=== PATIENT | male | born 1985 | race Caucasian/White ===

== ENCOUNTER 2017-02-19 10:01 | Emergency (ER) | payer MEDICAID ==
[~2017-02-19] VITALS: Ht 170.2 cm; Wt 111.3 kg
[2017-02-19 10:46] VITALS: Ht 170.2 cm; Wt 111.3 kg
[2017-02-19 13:43] VITALS: BP 143/103
== END 2017-02-19 13:20 | disposition home or self-care (01) ==
LOC: ED 10:01
DX: M67.432 Ganglion, left wrist (principal); G89.29 Other chronic pain; M54.9 Dorsalgia, unspecified; Z88.0 Allergy status to penicillin; Z88.1 Allergy status to other antibiotic agents

== ENCOUNTER 2017-05-14 10:24 | Emergency (ER) | payer OTHER ==
[~2017-05-14] VITALS: Ht 172.7 cm; Wt 114.3 kg
[2017-05-14 10:41] VITALS: Ht 172.7 cm; Wt 114.3 kg
[2017-05-14 11:38] VITALS: BP 135/76
== END 2017-05-14 12:48 | disposition home or self-care (01) ==
LOC: ED 10:24
DX: B34.9 Viral infection, unspecified (principal); H92.09 Otalgia, unspecified ear; Z88.0 Allergy status to penicillin; Z88.1 Allergy status to other antibiotic agents
CPT/HCPCS: 87804; J7613; J7644; Q0092; Q0162